=== PATIENT | male | born 1970 | race Caucasian/White ===

== ENCOUNTER 2017-03-02 10:20 | Day surgery (SDC) | payer OTHER ==
--- NOTE | 2017-03-01 15:08 | HP ---
DATE OF CLINIC: 02/24/2017 ESHA MENDOZA : 1970 PLANNED PROCEDURE: Right Ankle Hardware Removal (Syndesmosis Screws) DATE OF SURGERY: March 02, 2017 SURGEON: Jordan Bales M.D. PCP: None HISTORY OF PRESENT ILLNESS Esha Mendoza is a 46 year old male. * Medication list reviewed with patient allergy list reviewed with patient. This is a 46-year-old gentleman who is now five months out from a right ankle open reduction internal fixation for a bimalleolar ankle fracture with placement of syndesmosis screws by Dr. Fishman. He has recovered appropriately and he is back to full activities. He is interested in having his syndesmosis screws removed. He has no other complaints at this time and he denies any significant ongoing dysfunction at the ankle. PAST MEDICAL AND SURGICAL HISTORY: No significant changes since his last visit. PAST MEDICAL/SURGICAL HISTORY Reported: Medical: A previous fracture Right distal fibula facture 09/16/16. Surgical / Procedural: Prior surgery Dental work 09/25/12, Right distal fibula ORIF 09/28/[address] Fishman. SOCIAL HISTORY Behavioral: Current smoker and smoking status: Current everyday smoker. Alcohol: Alcohol. Drug Use: Drug use Marijuana. Work: Occupation Manufacturing Lab Technician. ALLERGIES * Aspirin * Penicillins REVIEW OF SYSTEMS No recent constitutional symptoms to include fevers and chills. No recent cardiovascular symptoms to include chest pain or palpitations. No recent respiratory symptoms to include shortness of breath or recent infections. PHYSICAL FINDINGS * Vitals taken 02/24/2017 01:07 pm BP-Sitting L 142/106 mmHg BP Cuff Size Regular Pulse Rate-Sitting 84 bpm Temp-Oral 97.9 F Height 68 in Weight 247 lbs 6.4 oz Body Mass Index 37.6 kg/m2 Body Surface Area 2.24 m2 Pain Level 3 Ears, Nose, Throat: * ENT: normal. Lungs: * Clear to auscultation. Cardiovascular: Heart Rate and Rhythm: * Normal. Abdomen: * Normal. Neurological: Motor: * Dominant Hand = Right Hand. Patient is a well-developed, well-nourished male in no acute distress. They are awake, alert and conversant throughout the encounter. CARDIOVASCULAR: Intact peripheral pulses on bilateral lower extremities. No significant edema on inspection of bilateral lower extremities. NEUROLOGIC: Patient had intact coordinated composite motion of the bilateral lower extremities and sensation intact to light touch in all distributions of bilateral lower extremities. PSYCHIATRIC: Patient was oriented to person, place and time and displayed appropriate mood and affect during the encounter. SKIN: Exam of the skin on bilateral lower extremities showed no significant scars, lesions, rashes or masses. FOCUSED MUSCULOSKELETAL EXAM: The patient ambulates without significant antalgia. Normal resting station of the hips, knees and ankles. His right ankle shows well healed surgical scars. He has dorsiflexion only to about neutral, maybe a few degrees past that before he feels a block anteriorly. He has plantar flexion of 30 degrees. He has got good sensation and a well perfused foot distally. He is stable to anterior drawer and talar tilt. He has 5/5 strength in dorsiflexion and plantar flexion at the ankle. He is neurologically intact throughout. IMAGING: A review of his x-rays shows two syndesmosis screws that bridge three cortices and appear to be 3.5 mm screws. He has a healed distal fibula fracture. ASSESSMENT Marker: [id number] A 46-year-old male with a healed right ankle fracture with syndesmosis screws in place limiting is external rotation of his fibula and likely limiting has dorsiflexion. THERAPY * Patient not eligible for fall risk assessment. PLAN * Displaced bimalleolar fracture of right lower leg, sequela Percocet 5-325 MG TABS, 1 every 4 - 6 hours as needed, 14 days, 0 refills Right ankle removal of hardware (syndesmosis screws). The plan will before removal of the syndesmosis screws in the operating room. He will retain the rest of his hardware and we will allow him to go back to activities as tolerated as soon as these screws are out. Risks, benefits and alternatives were discussed, the patient is eager to proceed. We obtained informed consent, documented this in the chart and we placed him on the schedule for next week. CARE TEAM No Current PCP Family Practice SURGICAL CONSENT We have discussed surgical options including right ankle hardware removal of syndesmosis screws and non-operative management. The patient was counseled in detail regarding the diagnosis, treatment options available, prognosis of each treatment option and the potential risks and complications. The risks of surgery include, but are not limited to, anesthetic , neurovascular complications, pulmonary embolism, deep vein thrombosis, wound dehiscence, failure of any or all of the discussed procedures, infection of the joint or surrounding soft tissue, need for revision surgery, chronic pain, limitations in activities of daily living, inability to return to work, and loss of normal range of motion or functional use of the extremity. There is the possibility of failure over time that may require additional operative or non-operative treatment. The patient acknowledged that there are a number of perioperative risks not mentioned here and would still like to proceed. The patient is aware of and understands these risks, and wishes to proceed with the proposed surgical procedure and other procedures as indicated at the time of surgery. We will have the patient see their PCP for a preoperative medical risk assessment. The preoperative instructions were reviewed with the patient and all questions were answered. PB/sg
[2017-03-02] MEDS ORDERED: CLINDAMYCIN 900 MG PREMIX 100 ML IV PRN (10:30)
[2017-03-02] MEDS ORDERED: IV START KIT ONE (10:35)
[2017-03-02] MEDS ORDERED: LACTATED RINGERS 1,000 ML ONE (10:35)
[2017-03-02] MEDS ORDERED: CLINDAMYCIN 900 MG PREMIX 50 ML IV ONE (10:56)
[2017-03-02] MEDS ORDERED: ONDANSETRON 4 MG/2ML 2 ML VIAL ONE (11:37)
[2017-03-02] MEDS ORDERED: PROPOFOL 20 ML IV ONE (11:37)
[2017-03-02] MEDS ORDERED: MIDAZOLAM HCL 1 MG/ML 2ML VIAL ONE (11:38)
[2017-03-02] MEDS ORDERED: MIDAZOLAM HCL 5 MG/5 ML VIAL ONE (12:03)
[2017-03-02] MEDS ORDERED: LIDOCAINE 1% (PRES FREE) 30 ML VIAL ONE (12:25)
[2017-03-02] MEDS ORDERED: BUPIVACAINE 0.5% (PRES FREE) 30 ML VIAL ONE (12:26)
[2017-03-02] MEDS ORDERED: LIDOCAINE 1%/EPI 1:100,000 (MULTI DOSE) 30 ML VIAL ONE (12:26)
[2017-03-02] MEDS ORDERED: KETAMINE HCL UD SYRINGE 100 MG/2 ML IV ONE (12:56)
[2017-03-02] MEDS ORDERED: FENTANYL 100 MCG/2 ML VIAL ONE (12:58)
[2017-03-02] MEDS ORDERED: BUPIVACAINE 0.5% W/EPI SDV 30 ML VIAL ONE (13:17)
[2017-03-02] MEDS ORDERED: OXYCODONE/ACETAMINOPHEN 5/325 MG TABLET PO PRN (13:51)
[2017-03-02] MEDS ORDERED: HYDROMORPHONE HCL 1 MG/ML SYRINGE IV PRN (13:51)
[2017-03-02] MEDS ORDERED: DIPHENHYDRAMINE HCL 50 MG/1 ML VIAL IV PRN (13:51)
[2017-03-02] MEDS ORDERED: LACTATED RINGERS 1,000 ML IV SCH (13:51)
[2017-03-02] MEDS ORDERED: ONDANSETRON 4 MG/2ML 2 ML VIAL IV PRN (13:51)
[2017-03-02] MEDS ORDERED: ACETAMINOPHEN 325 MG TABLET PO PRN (13:51)
--- NOTE | 2017-03-02 13:52 | PCMBPN ---
Brief Post Op Note: Date of Procedure: 03/02/17 Start Time: 1:15 PM Preoperative Diagnosis: 1. right ankle retained hardware Postoperative Diagnosis: 1. Same Procedure: right ankle syndesmosis screw removal Surgeon: Jordan Bales MD Assist: none Anesthesia: Ирина Brandon Findings: as above Condition: stable to PACU Complications: none IV Fluids: 400 mLs of LR Urine Output: 0 mLs Estimated Blood Loss: 5 mLs Tourniquet Time: none Specimens: none Implants: 2 screws removed Drains: none Jordan Bales MD
--- NOTE | 2017-03-02 13:54 | RAD ---
ANKLE LIMITED RIGHT 1-2 VIEWS HISTORY: Removal of 2 screws. COMPARISONS: Right ankle series 12/15/2016 FINDINGS: 2 overhead fluoroscopic images are provided for review. These images demonstrate removal of the 2 syndesmotic screws. Ghost tracks are identified. Study is limited with respect to osseous detail given fluoroscopic technique. Fluoroscopy time: 6.3 seconds IMPRESSION: Intraoperative fluoroscopy as above. Please see surgeon's note regarding the procedure for further details.
--- NOTE | 2017-03-06 13:07 | OP ---
Faizan NIELSEN JR : 1970 [id number] DATE OF PROCEDURE: March 02, 2017 PREOPERATIVE DIAGNOSIS: Right ankle symptomatic retained hardware. POSTOPERATIVE DIAGNOSIS: Right ankle symptomatic retained hardware. PROCEDURE PERFORMED: RIGHT ANKLE SYNDESMOSIS SCREW REMOVAL. SURGEON: Jordan Bales M.D. SENIOR SOFTWARE QUALITY ANALYST: None. ANESTHESIA: Georgina Brandon CaPytonR.N.A. SPECIMENS: No material was sent to the laboratory. ESTIMATED BLOOD LOSS: 5 mL FLUIDS REPLACED: 400 mL of crystalloid. TOURNIQUET TIME: None. DRAINS: None. IMPLANTS REMOVED: Two screws were removed. INDICATIONS: This is a 46-year-old gentleman who previously underwent an open reduction internal fixation of a right ankle fracture with syndesmosis instability. He had two syndesmosis screws placed at that time by one of my partners. He has subsequently recovered from his injury and now requires removal of his syndesmosis screws in order to allow normal rotational motion at the distal tib-fib joint. Risks, benefits and alternatives were discussed with the patient and he was eager to proceed. DESCRIPTION OF PROCEDURE: The patient was identified in the preoperative holding area where he was marked with indelible marker by the operating surgeon. He was taken to the operating room where he was placed in the supine position on the operating room table. He received some intravenous sedation and perioperative antibiotics. He was prepped and draped in the usual sterile fashion for surgery. Operative time out was performed and confirmed by all members of the operative team. We used 20 mL of lidocaine injected subcutaneously for local anesthetic. Intraoperative fluoroscopy was utilized to localize the screws and the inferior portion of his previous incision was reopened. Blunt dissection was carried down identifying the heads of the two screws and these were removed without difficulty. The wound was copiously irrigated with sterile saline, closed with #2-0 Vicryl and a #3-0 Nylon. Sterile dressing of Xeroform, fluffs, web roll and an MARNIE bandage was applied. The drapes were removed. The patient was awakened from his anesthesia and transferred to a stretcher and taken postoperatively to the postanesthesia care unit. There were no observed intraoperative complications during this procedure. Job [id number] Cc: Fultonmadalyn Alegre
== END 2017-03-02 18:33 | disposition home or self-care (01) ==
LOC: SDC 10:20
PROVIDERS: ATTEND Orthopaedic Surgery
DX: S82.841S Displaced bimalleolar fracture of right lower leg, sequela (principal); M25.571 Pain in right ankle and joints of right foot; F17.200 Nicotine dependence, unspecified, uncomplicated
CPT/HCPCS: 20680; 73600; 76000; J3010; J2250; J2405; J7120